=== PATIENT | male | born 1945 | race Caucasian/White ===

== ENCOUNTER 2019-09-18 14:30 | Emergency (ER) | payer BC, SELFPAY ==
--- NOTE | ~2019-09-18 | XR_ITS ---
XR lumbar spine min 4V DATE: 09/18/2019 15:20 INDICATION: Low back pain for 6 days. Limited of fire pit and felt pain in lower back and hips TECHNIQUE: AP, lateral, coned lateral lumbosacral and bilateral oblique views COMPARISON: None FINDINGS: There is prominent diffuse osteopenia. There is moderate probable compression fracture deformity of T11, with uncertain age. There is prominent anterior wedge compression fracture deformity at T12, of uncertain age. There is moderate anterior wedging consistent with compression fracture at L1, likely chronic. There is mild anterior wedging and loss of height of L2, likely chronic. There is moderate loss of height and anterior wedging of L3, likely chronic. There is moderate biconc avity of L4, likely chronic. Lumbar and lumbosacral interspaces are well preserved if not exaggerated. The sacroiliac joints are intact. There is a prominent amount of fecal material throughout the colon consistent with constipation. IMPRESSION: Apparent compression fracture deformities of T11 and T12, of uncertain age, one or more w hich may be possibly recent Multiple probable chronic compression fracture deformity is of the lumbar spine Prominent diffuse osteopenia Reviewed, dictated and finalized at location A. IMPRESSION: Apparent compression fracture deformities of T11 and T12, of uncert ain age, one or more which may be possibly recent Multiple probable chronic compression fracture deformity is of the lumbar spine Prominent diffuse osteopenia
[2019-09-18 14:55] VITALS: BP 138/77; PULSE 61; RESP 20; TEMP 35.9; O2SAT 100
--- NOTE | 2019-09-18 15:01 | ED.BACK ---
HPI - Back Pain/Injury General Chief Complaint: Back Pain/Injury Stated Complaint: back pain Time Seen by Provider: 09/18/19 15:00 Source: patient Mode of arrival: ambulatory Limitations: no limitations History of Present Illness HPI Narrative: Rick Paul is a 74 yo male with PMH of osteoprosis, hypothyroid, who came to express care for lower back pain. He was moving a fireplace 6 days ago and started having pain immediately. Today is moving very stiffly having difficulty ambulating Related Data Home Medications Medication Instructions Recorded Confirmed alendronate 70 mg PO WEEKLY 09/18/19 09/18/19 levothyroxine 112 mcg PO DAILY 09/18/19 09/18/19 testosterone 1 packet TRANSDERMAL QAM 09/18/19 09/18/19 Allergies Allergy/AdvReac Type Severity Reaction Status Date / Time No Known Allergies Allergy Verified 09/18/19 14:59 Review of Systems Review of Systems: Narrative: CONSTITUTIONAL: Denies fever, chills, sweats. EYES: Denies visual changes, redness, discharge. ENT: Denies rhinorrhea, congestion, sore throat, otalgia. CARDIOVASCULAR: Denies chest pain, palpitations, edema. RESPIRATORY: Denies dyspnea, wheezing, cough GASTROINTESTINAL: Denies abdominal pain, nausea, vomiting, diarrhea. GENITOURINARY: Denies dysuria, hematuria, abnormal discharge SKIN: Denies rash or itching. NEUROLOGIC: Denies numbness, or focal weakness. PSYCHIATRIC: Denies anxiety or depression. severe back pain and inability to ambulate well PMFSH Family History Family History Other No active medical problems Social History Social History Smoking status: Never smoker Alcohol intake: current Gender identity (if verbalized by the patient): Male Comments At time of signature, I agree with nursing past medical, surgical, social and family history. There is no relevant family history pertinent to the presenting complaint. Exam Narrative: Exam Narrative: GENERAL: This is a well-nourished, well-developed patient, in mild distress. HEAD: normocephalic, atraumatic. EYES: PERRL. Sclera clear/white. Vision is grossly intact. EARS: External ears normal, auditory canals clear and without drainage, TMs normal without perforation. Hearing grossly intact. NOSE: External nose normal without nasal discharge, nares without redness, no rhinorrhea. THROAT: Mucous membranes moist, posterior pharynx NECK: Neck supple, non-tender CARDIOVASCULAR: Regular rate and rhythm without murmurs, gallops, or rubs. RESPIRATORY: Clear to auscultation. Breath sounds equal bilaterally. No wheezes, rales, or rhonchi. GASTROINTESTINAL: Abdomen soft, non-tender, SKIN: warm, intact with no suspicious lesions or rash, good texture and turgor. NEURO: awake, alert, and oriented to person, place and time. There were no obvious focal neurologic abnormalities. Steady gait EXTREMITIES: Normal range of motion. BACK: tender , T11/T12 pain, difficulty with having BM, pain with walking, unable to stand up Course Course Emergency Course: Lumbar x-ray shows compression fracture of T11-T12 with old L1-L2-L3 fractures Patient is being referred to [facility] for further treatment possible admission patient needs pain control and possible orthopedics consult Vital Signs Vital signs: Vital Signs Temperature 96.6 F L 09/18/19 14:55 Pulse Rate 61 09/18/19 14:55 Respiratory Rate 09/18/19 14:55 Blood Pressure 138/77 09/18/19 14:55 Pulse Oximetry 100 09/18/19 14:55 Temperature 96.6 F L 09/18/19 14:55 Pulse Rate 61 09/18/19 14:55 Respiratory Rate 09/18/19 14:55 Blood Pressure 138/77 09/18/19 14:55 Pulse Oximetry 100 09/18/19 14:55 MDM - Back Pain/Injury Differential Diagnosis Differential diagnosis: Likely sciatica, thoracic back pain and other (Compression fracture) Lab Data Labs: Urine Glucose Negative
== END 2019-09-18 15:52 | disposition short-term general hospital (02) ==
PROVIDERS: Emergency Provider Nurse Practitioner; PCP Internal Medicine Endocrinology, Diabetes & Metabolism
DX: M48.54XA Collapsed vertebra, not elsewhere classified, thoracic region, initial encounter for fracture (principal)
CPT/HCPCS: 72110; 81003; 99203; G0463

== ENCOUNTER 2019-09-18 16:14 | Emergency (ER) | payer BC, SELFPAY ==
--- NOTE | ~2019-09-18 | CT_ITS ---
EXAMINATION: CT thoracic lumbar wo con DATE: 09/18/2019 16:53 INDICATION: Back pain, compression fracture TECHNIQUE: Computed tomography (CT) of the thoracic and lumbar spine was performed without intravenou s contrast. The dose-length product (DLP) was 500.04 mGy-cm. Iterative reconstruction was used. COMPARISON: Chest radiograph, 12/26/2010 FINDINGS: THORACIC SPINE: There are 35 degrees of thoracic dextroscoliosis. There are burst fractures of T8 and T12 which are new since the comparison examination. A chronic mild compression deformity of T11 is n oted. There is also mild compression deformity of T1. The paravertebral soft tissues are normal. Ther e is chronic scarring and bronchiectasis of the right upper lobe. Bone alignment is normal. There is mild loss of intervertebral disc space height at multiple levels. LUMBAR SPINE: There are mild compression deformities of L1, L2, and L4. Bone alignment is normal. The re is mild loss of intervertebral disc space height throughout the lumbar spine. The paravertebral so ft tissues are normal. Nonobstructing left nephrolithiasis is noted. IMPRESSION: 1. Age indeterminate burst fractures of T8 and T12 and compression fractures of T1, L1, L2, and L4. C hronic T11 compression fracture. Reviewed, dictated and finalized at location A. IMPRESSION: 1. Age indeterminate burst fractures of T8 and T12 and compression fractures of T1, L1, L2, and L4. Chronic T11 compression fracture.
[2019-09-18 16:20] VITALS: BP 135/65; PULSE 85; RESP 18; TEMP 37.2; O2SAT 96
--- NOTE | 2019-09-18 16:23 | ECG_ITS ---
Measurements Intervals Bastian Rate: 49 P: 48 TN: 140 QRS: 10 QRSD: 89 T: 62 QT: 445 QTc: 404 Interpretive Statements SINUS BRADYCARDIA ABNORMAL ECG Electronically Signed On 09-19-2019 9:03:20 CDT by Harvinder Michelle D.O.
--- NOTE | 2019-09-18 16:24 | ED.BACK ---
HPI - Back Pain/Injury General Chief Complaint: Back Pain/Injury Stated Complaint: Compression Fractures in Back Time Seen by Provider: 09/18/19 16:23 Source: patient Mode of arrival: ambulatory Limitations: no limitations History of Present Illness HPI Narrative: Patient is a 74-year-old male who presents for evaluation of back pain. Patient was seen in an urgent care this morning for back pain and diagnosed with thoracic compression fractures. Patient reportedly was moving a fireplace 6 days ago, when he began to have lower back pain immediately after trying to lift very heavy objects. Patient denies any lower extremity numbness, weakness. No saddle anesthesia. You no urinary retention. Patient has had some intermittent constipation, but took MiraLAX yesterday with good improvement in his constipation. No numbness on his bottom. Patient states the pain is worse when he is upright and improved when he is laying flat. He is taking Tylenol and aspirin for the pain without much improvement. Related Data Home Medications Medication Instructions Recorded Confirmed alendronate 70 mg PO WEEKLY 09/18/19 09/18/19 levothyroxine 112 mcg PO DAILY 09/18/19 09/18/19 testosterone 1 packet TRANSDERMAL QAM 09/18/19 09/18/19 Allergies Allergy/AdvReac Type Severity Reaction Status Date / Time No Known Allergies Allergy Verified 09/18/19 14:59 Review of Systems Review of Systems: Narrative: CONSTITUTIONAL: Denies fever, chills, or sweats. CARDIOVASCULAR: Denies chest pain, palpitations, or edema. RESPIRATORY: Denies cough or dyspnea. GASTROINTESTINAL: Denies abdominal pain, nausea, vomiting, or diarrhea. GENITOURINARY: Denies dysuria or hematuria. SKIN: Denies rash or itching. MUSCULOSKELETAL: Reports back pain NEUROLOGIC: Denies headache, numbness, or weakness. [facility] Social History Social History Smoking status: Never smoker Alcohol intake: current Gender identity (if verbalized by the patient): Male Exam Narrative: Exam Narrative: GENERAL: Awake, alert, conversant, thin HEAD: Normocephalic, atraumatic. EYES: PERRLA and EOMI. ENT: Nares clear, no rhinorrhea or epistaxis. Mucous membranes moist. NECK: Supple. CHEST: No respiratory distress, breathing even and non labored HEART: Regular rate, sinus rhythm ABDOMEN:Non distended, non tender EXTREMITIES: Normal range of motion. No edema. THORAX: Tender to palpation,midline T10-12 SKIN: Mildly jaundiced, warm, dry NEURO:No focal deficits. Alert and oriented x3. EOMs intact without nystagmus. No facial droop/asymmetry noted bilaterally. Grimace intact. Intact sensation in face. Hearing intact bilaterally. Shoulder shrug intact. Strength 5/5 bilateral upper extremities. Strength 5/5 bilateral lower extremities. Reflexes 2+ patellar. Heel to kaba intact bilaterally. Ambulatory with a narrow base, steady gait. No ataxia. Course Course Emergency Course: Patient presented for evaluation of back pain from an urgent care where he was found to have compression fractures of the thoracic spine. On CT imaging, patient is noted to have burst fractures as well as numerous compression fractures. No focal neurological deficits on assessment. I did not image the patient cervical spine because he is not having any pain in that area and is ambulatory. Patient will be placed on a cervical collar per the recommendation of [facility] attending, patient will be transferred over to their facility for evaluation by spine service. Patient family were updated, transferred via EMS in stable condition. Vital Signs Vital signs: Vital Signs Temperature 37.2 C 09/18/19 16:20 Pulse Rate 85 09/18/19 16:20 Respiratory Rate 18 09/18/19 16:20 Blood Pressure 135/65 09/18/19 16:20 Pulse Oximetry 96 09/18/19 16:20 Temperature 37.2 C 09/18/19 16:34 Pulse Rate 95 09/18/19 16:34 Respiratory Rate 20 09/18/19 16:34 B
[2019-09-18 16:34] VITALS: BP 135/69; PULSE 95; RESP 20; TEMP 37.2; O2SAT 96
[2019-09-18 16:45] LABS: Basophils Percent Auto 0.7 % (0.2-1.2); Eosinophils Percent Auto 0.5 % (0-4.4); Hematocrit 36.1 % (42.0-52.0); Hemoglobin 12.1 g/dL (14.0-18.0); Immature Granulocyte Absolute 0.01 K/mm3 (0.00-0.031); Immature Granulocyte Percent A 0.2 % (0-0.5); Lymphocytes Percent Auto 12.1 % (18.3-44.2); Mean Corpuscular HGB Conc 33.5 g/dl (32-36); Mean Corpuscular Hemoglobin 31.7 pg (26-34); Mean Corpuscular Volume 94.5 fl (80-100); Mean Platelet Volume 9.1 fl (7.4-10.4); Monocytes Absolute Auto 0.5 K/mm3 (0.1-0.6); Monocytes Percent Auto 12.4 % (2.6-8.5); Neutrophils Absolute Auto 3.1 K/mm3 (1.3-6.7); Neutrophils Percent Auto 74.1 % (45.5-73.1); Platelet Count Result 165 k/mm3 (150-375); Red Blood Count 3.82 M/mm3 (4.6-6.20); Red Cell Distribution Width 12.3 % (11.5-14.5); White Blood Count 4.1 K/mm3 (4.5-10.0)
[2019-09-18 17:16] LABS: Alanine Aminotransferase 25 U/L (4-50); Albumin Level 3.9 g/dL (3.5-5.1); Alkaline Phosphatase 51 U/L (38-126); Aspartate Amino Transferase 37 U/L (17-59); Bilirubin,Total 0.4 mg/dL (0.2-1.3); Blood Urea Nitrogen 22 mg/dL (9-20); Calcium 8.6 mg/dL (8.4-10.2); Carbon Dioxide 29 mmol/L (22-30); Chloride 97 mmol/L (98-107); Estimated CRCL calculation 81 ml/min; Estimated Glomerular Filt Rate > 60; Glucose 85 mg/dL (75-110); Sodium 133 mmol/L (137-145)
[2019-09-18 17:18] LABS: Alanine Aminotransferase 25 U/L (4-50); Albumin Level 3.9 g/dL (3.5-5.1); Alkaline Phosphatase 49 U/L (38-126); Aspartate Amino Transferase 38 U/L (17-59); Bilirubin,Total 0.4 mg/dL (0.2-1.3); Blood Urea Nitrogen 22 mg/dL (9-20); Calcium 8.6 mg/dL (8.4-10.2); Carbon Dioxide 31 mmol/L (22-30); Chloride 96 mmol/L (98-107); Estimated CRCL calculation 81 ml/min; Estimated Glomerular Filt Rate > 60; Glucose 83 mg/dL (75-110); Sodium 132 mmol/L (137-145)
[2019-09-18 18:17] VITALS: BP 141/82; PULSE 53; RESP 20; O2SAT 100
[2019-09-18 19:10] VITALS: BP 140/78; PULSE 55; RESP 20; O2SAT 98
== END 2019-09-18 19:13 | disposition short-term general hospital (02) ==
PROVIDERS: Emergency Provider Emergency Medicine; PCP Internal Medicine Endocrinology, Diabetes & Metabolism
DX: S22.081A Stable burst fracture of T11-T12 vertebra, initial encounter for closed fracture (principal); S22.061A Stable burst fracture of T7-T8 vertebra, initial encounter for closed fracture; S22.018A Other fracture of first thoracic vertebra, initial encounter for closed fracture; S32.018A Other fracture of first lumbar vertebra, initial encounter for closed fracture; S32.028A Other fracture of second lumbar vertebra, initial encounter for closed fracture; S32.048A Other fracture of fourth lumbar vertebra, initial encounter for closed fracture; M48.54XA Collapsed vertebra, not elsewhere classified, thoracic region, initial encounter for fracture; R00.1 Bradycardia, unspecified; X50.0XXA Overexertion from strenuous movement or load, initial encounter
CPT/HCPCS: 36415; 72110; 72128; 72131; 80053; 81003; 85025; 93005; 99285; A9270; L0140

== ENCOUNTER 2019-11-11 12:26 | Outpatient (CLI) | payer BC, SELFPAY ==
--- NOTE | ~2019-11-11 | MR_ITS ---
EXAMINATION: MR pelvis wo/w con DATE: 11/11/2019 15:01 INDICATION: Neoplasm of pancreas. TECHNIQUE: Magnetic resonance imaging (MRI) of the pelvis was performed without and with 10 mL MultiH ance intravenous contrast. Sequences included coronal and axial T2-weighted SS-FSE, coronal and axial FS 2D-FIESTA, axial T1-weighted dual-echo FSPGR, and axial T1-weighted LAVA. Postcontrast axial T1-w eighted LAVA images were obtained. COMPARISON: None. FINDINGS: There are no dilated loops of bowel. There is a large volume of stool in the colon. There are no path ologically enlarged lymph nodes. There is no free intraperitoneal fluid. IMPRESSION: 1. No neoplasm identified. Reviewed, dictated and finalized at location A. IMPRESSION: 1. No neoplasm identified.
--- NOTE | ~2019-11-11 | MR_ITS ---
EXAMINATION: MR abdomen wo/w con DATE: 11/11/2019 15:01 INDICATION: Neoplasm of pancreas. TECHNIQUE: Magnetic resonance imaging (MRI) of the abdomen was performed without and with 10 mL Multi Maged intravenous contrast. Sequences included coronal T2-weighted FS FSE, coronal and axial FS FIEST A, axial T2-weighted FSE, coronal LAVA-flex, axial STIR FSE, axial DWI, axial dual-echo T1-weighted F SPGR, and axial LAVA. Postcontrast sequences included coronal LAVA-flex and a time course of axial LA VA. COMPARISON: Abdomen ultrasound 08/25/2009 FINDINGS: There are cysts of the liver measuring up to 8 mm. The gallbladder, spleen, pancreas, adrenal glands, and right kidney are normal. There is a 6 mm cyst in left kidney. There are no dilated loops of rolo l. There are no pathologically enlarged lymph nodes. There is no free intraperitoneal fluid. Again se en are multiple chronic compression and burst fractures in the spine. IMPRESSION: 1. No neoplasm identified. Reviewed, dictated and finalized at location A. IMPRESSION: 1. No neoplasm identified.
[2019-11-11 13:24] LABS: Estimated Glomerular Filt Rate > 60
== END 2019-11-11 12:27 | disposition home or self-care (01) ==
PROVIDERS: PCP Internal Medicine Endocrinology, Diabetes & Metabolism; Visit Provider Internal Medicine Endocrinology, Diabetes & Metabolism
DX: D13.6 Benign neoplasm of pancreas (principal)
CPT/HCPCS: 36415; 72197; 74183; A9577

== ENCOUNTER 2020-03-15 12:33 | Outpatient (CLI) | payer BC, SELFPAY ==
--- NOTE | ~2020-03-15 | CT_ITS ---
EXAMINATION: CT abdomen wo con DATE: 03/15/2020 13:08 INDICATION: Abdominal distention TECHNIQUE: Computed tomography (CT) of the abdomen was performed without intravenous contrast. Automa saulo exposure control and iterative reconstruction technique were employed. Exam dose: 91.32 mGy-cm t otal exam DLP. COMPARISON: 11/11/2019 and lower abdomen FINDINGS: Examination is limited by minimal body fat and absence of intravenous contrast material. There is likely chronic discoid scarring in the left lower lobe. There is infiltrate or consolidatio n at the lung bases. Normal heart size. No pericardial or pleural effusion. Approximately 8 mm right hepatic cyst. Occasional smaller hepatic cysts may be present. Normal spleni c size. No obvious suspicious hepatic, splenic, common and pancreatic, and adrenal or renal space-occ upying mass lesion is evident on this limited noncontrast examination. There is an approximately 5.8 x 8 mm upper pole left renal calculus. There is an approximately 1.5 mm lower pole left renal calculus. There are approximately three or four nonobstructing right renal calculi, the largest 2.3 x 4 mm. No hydronephrosis of either kidney is evident. There is atherosclerotic calcification of the abdominal aorta but no aneurysm. No obvious adenopathy. No ascites. There is a prominent amount of fecal material within the colon and gaseous distention of multiple sma ll bowel segments. No small or large bowel dilatation or apparent obstruction, bowel wall thickening or intraperitoneal free air. There is some osteosclerotic lesions of the ribs bilaterally, suggesting possible prosthetic osteoscl erotic metastases. There is burst fracture/vertebra plana at T12. Compression fracture deformities are noted at T11, L1, L2, L3, L4. 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 Reviewed, dictated and finalized at location A. 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
== END 2020-03-15 12:34 | disposition home or self-care (01) ==
PROVIDERS: PCP Internal Medicine; Visit Provider Internal Medicine
DX: R14.0 Abdominal distension (gaseous) (principal); N20.0 Calculus of kidney; K76.89 Other specified diseases of liver
CPT/HCPCS: 74150

== ENCOUNTER 2020-04-20 11:23 | Outpatient (CLI) | payer BC, SELFPAY ==
--- NOTE | ~2020-04-20 | XR_ITS ---
XR abdomen/kub 1V 04/20/2020 11:51 Indication: Renal stones Procedure: KUB Comparison: No prior studies for comparison. Findings: Nonobstructive bowel gas pattern. Large amount of retained fecal material in the colon. The re are left renal stones. Moderate lumbar spondylosis with burst fracture at T12 and multiple mild co mpression deformities of the lumbar spine which appear chronic. Impression: 1: Nonobstructive bowel gas pattern. Fecal impaction of the colon. 2: Left nephrolithiasis. Reviewed, dictated and finalized at location A. TICAL SCIENCE PROFESSOR Impression: 1: Nonobstructive bowel gas pattern. Fecal impaction of the colon. 2: Left nephrolithiasis.
== END 2020-04-20 11:24 | disposition home or self-care (01) ==
PROVIDERS: PCP Internal Medicine; Visit Provider Urology
DX: N20.0 Calculus of kidney (principal)
CPT/HCPCS: 74018

== ENCOUNTER 2020-05-01 12:34 | Outpatient (CLI) | payer BC, SELFPAY ==
--- NOTE | ~2020-05-01 | MR_ITS ---
EXAMINATION: MR lumbar spine wo con EXAM DATE: 05/01/2020 13:32 INDICATION: Other Spondylosis W/Radiculopathy,Lumbar Region. Bilateral leg pain. TECHNIQUE: Multi-sequential, multiplanar MR images of the lumbar spine were obtained without contrast . Sagittal T1, T2, T2 fat saturation images. Axial T2 weighted images. Correlation is made to CT . FINDINGS: Chronic severe compression fracture of T12 level. Mild to moderate chronic compression frac tures of the T11, L1-L4 vertebral bodies without edema, also chronic. The conus medullaris terminates at the L1 level and has normal signal intensity and morphology. There are no focal marrow signal ab normalities suspicious for malignancy or acute fracture. Mild diffuse lumbar disc disease. Paraspinal soft tissue is unremarkable. Level by level evaluation: T11-12: Superior endplate T12 vertebral body projects 5 mm into the spinal canal. Facet arthropathy: Mild. Neural foraminal stenosis: No stenosis. Central canal stenosis: Moderate. T12-L1: There is a mild diffuse disc bulge. Facet arthropathy: Mild. Neural foraminal stenosis: Mild bilateral. Central canal stenosis: No stenosis. L1-L2: There is a mild diffuse disc bulge. Facet arthropathy: Mild. Neural foraminal stenosis: No stenosis. Central canal stenosis: No stenosis. L2-L3: There is a mild to moderate diffuse disc bulge. Facet arthropathy: Mild. Neural foraminal stenosis: Mild bilateral. Central canal stenosis: Mild. L3-L4: There is a moderate diffuse disc bulge. Facet arthropathy: Mild to moderate. Neural foraminal stenosis: Moderate bilateral. Central canal stenosis: Mild to moderate. L4-L5: There is a mild to moderate diffuse disc bulge. Facet arthropathy: Mild to moderate. Neural foraminal stenosis: Mild to moderate bilateral. Central canal stenosis: Mild to moderate. L5-S1: There is a mild diffuse disc bulge. Facet arthropathy: Mild. Neural foraminal stenosis: No stenosis. Central canal stenosis: Mild. IMPRESSION: 1. Chronic compression fractures, severe at T12 with posterior endplate causing moderate central can al stenosis, displacing conus posteriorly but no conus edema. 2. Overall moderate lumbar spondylosis. Reviewed, dictated and finalized at location B. [employer] DEPARTMENT CHAIR IMPRESSION: 1. Chronic compression fractures, severe at T12 with posterior endplate causin g moderate central canal stenosis, displacing conus posteriorly but no conus ed waldo. 2. Overall moderate lumbar spondylosis.
== END 2020-05-01 12:35 | disposition home or self-care (01) ==
PROVIDERS: PCP Internal Medicine
DX: M47.26 Other spondylosis with radiculopathy, lumbar region (principal); S32.001A Stable burst fracture of unspecified lumbar vertebra, initial encounter for closed fracture; X58.XXXA Exposure to other specified factors, initial encounter
CPT/HCPCS: 72148

== ENCOUNTER 2020-07-29 12:17 | Outpatient (CLI) | payer BC, SELFPAY ==
--- NOTE | ~2020-07-29 | NM_ITS ---
EXAMINATION: NM bone scan whole body DATE: 07/29/2020 16:00 INDICATION: Thoracic compression fracture. TECHNIQUE: 24.3 mCi Tc-99m HDP was administered intravenously. Delayed whole-body scintigrams were o btained. COMPARISON: Lumbar spine MR dated 05/01/[address] dated 09/18/2019 FINDINGS: Thoracic kyphosis. There is increased uptake anteriorly along the lower cervical spine which on prior CT study corresponds to severe anterior disc height loss at C5-C6 and C6-C7. Subtle thin linear upta ke extending across the thoracic spine at the level of chronic T12 compression fracture which appeare d relatively recent on CT dated 09/18/2019 likely representing residual changes of healing. A couple s mall foci of mild likely degenerative uptake at the bilateral knees. No other suspicious foci of abno rmal bone uptake to suggest more recent fracture or metastatic disease. IMPRESSION: 1. Mild increased uptake along the anterior lower cervical spine likely related to degenerative disc disease. 2. Very mild uptake associated with a chronic T12 compression fracture likely representing mild resid ual changes of healing. 3. No other lesions suspicious for more acute fracture or metastatic disease. Reviewed, dictated and finalized at location A. IMPRESSION: 1. Mild increased uptake along the anterior lower cervical spine likely related to degenerative disc disease. 2. Very mild uptake associated with a chronic T12 compression fracture likely r epresenting mild residual changes of healing. 3. No other lesions suspicious for more acute fracture or metastatic disease.
== END 2020-07-29 12:18 | disposition home or self-care (01) ==
PROVIDERS: PCP Internal Medicine; Visit Provider Nurse Practitioner Family
DX: M48.54XA Collapsed vertebra, not elsewhere classified, thoracic region, initial encounter for fracture (principal); M47.812 Spondylosis without myelopathy or radiculopathy, cervical region
CPT/HCPCS: 78306; A9561